=== PATIENT | female | born 1980 | race Caucasian/White ===

== ENCOUNTER → 2018-06-07 11:00 | Outpatient (CLI) | payer OTHER, SELFPAY | DX: Z23 Encounter for immunization (principal) | CPT/HCPCS: 90471; 90686 ==

== ENCOUNTER 2023-04-13 10:20 | Emergency (ER) | payer OTHER, SELFPAY ==
[2023-04-13 10:30] VITALS: BP 177/99; PULSE 85; RESP 18; TEMP 36.6; O2SAT 99; BMI 44.2
--- NOTE | 2023-04-13 10:36 | DI.RAD.S_ITS ---
PROCEDURE: XR CHEST 1V INDICATIONS: cough x 2 months TECHNIQUE: One view of the chest was acquired. COMPARISON: [facility], , CHEST 2 VIEW, 07/02/2016, 22:27. FINDINGS: Surgical changes and devices: None. Lungs and pleura: Lungs are clear. No pleural effusions or pneumothorax. Mediastinum: Mediastinal contours appear normal. Heart size is normal. Bones and chest wall: No suspicious bony lesions. Overlying soft tissues appear unremarkable. IMPRESSION: Portable chest within normal limits for age. Dictated by: Josefina Jordan M.D. on 04/13/2023 at 11:51 Approved by: Josefina Jordan M.D. on 04/13/2023 at 11:51
[2023-04-13 11:20] LABS: Influenza A - CEPHEID Flu A NEGATIVE (NEGATIVE); Influenza B - CEPHEID Flu B NEGATIVE (NEGATIVE); Respiratory Syncytial Virus Negative (Negative)
[2023-04-13 11:22] LABS: COVID-19 CEPHEID 4-PLEX PCR Negative (Negative)
--- NOTE | 2023-04-13 11:38 | ED.URI ---
HPI - URI/Sore Throat <Shazia Allen PA-C - Last Filed: 04/13/23 12:02> General Chief Complaint: Upper Respiratory Symptoms Stated Complaint: sinus issues Time Seen by Provider: 04/13/23 11:26 Source: patient Mode of arrival: Ambulatory History of Present Illness HPI Narrative: Patient is a 42-year-old female who presents with chief complaint of cough and sinus pressure. She reports she had a cold about 2 months ago and developed a productive frequent cough which seemed to better after several weeks but then she got sick again and the cough is again worse. She denies fever or chills, nausea vomiting, sore throat. She does have a bit of a runny nose and some postnasal drip. She endorses sinus pain and pressure and ear pain and pressure x7 days. She thinks her left ear is very congested and she can barely hear out of it. She has tried taking [id number] Mucinex and decongestants, and recently started taking Flonase daily for 3 days. She endorses shortness of breath during coughing fits but otherwise does not feel short of breath or wheezy, does not have any chest pain or abdominal pain. She has been able to eat and drink adequately. She is a nonsmoker and takes no daily medications. Related Data Home Medications Medication Instructions Recorded Confirmed [ CONTROL] ##0 07/02/16 Previous Rx's Medication Instructions Recorded amoxicillin 500 mg tablet 1,000 mg (2 x 500 mg) PO TID 5 04/13/23 days #30 tabs benzonatate 100 mg capsule 100 mg PO TID PRN cough #14 caps 04/13/23 Allergies Allergy/AdvReac Type Severity Reaction Status Date / Time No Known Drug Allergies Allergy Verified 04/13/23 11:30 Review of Systems <Shazia Allen PA-C - Last Filed: 04/13/23 12:02> Review of Systems ROS Unobtainable: All systems reviewed & are unremarkable except as noted in HPI and below Patient History <Shazia Allen PA-C - Last Filed: 04/13/23 12:02> Social History Smoking Status: Never smoker Smoking Status: Never smoker alcohol intake frequency: holidays/special occasions only Substance Use Type: does not use Exam <Shazia Allen PA-C - Last Filed: 04/13/23 12:02> Narrative Exam Narrative: GENERAL: 42 year old patient appears stated age. Well-developed patient, in mild distress. NEURO: AOx3. HEAD: Atraumatic. Normocephalic. EYES: Pupils equal round and reactive. Extraocular motions intact. No scleral icterus. No injection or drainage. ENT: Nose without bleeding or purulent drainage. Throat without erythema, tonsillar hypertrophy or exudate. Airway patent. Left TM shiny, bulging with clear fluid, no erythema. Right TM mildly bulging and clear. NECK: Trachea midline. Non tender CARDIOVASCULAR: Regular rate and rhythm without murmurs, gallops, or rubs. RESPIRATORY: Diminished in right lower lobe. No wheezes, rales, or rhonchi. Moist cough. SKIN: No rash or erythema of visible areas Initial Vital Signs Initial Vital Signs: Vital Signs Temperature 97.8 F 04/13/23 10:30 Pulse Rate 85 04/13/23 10:30 Respiratory Rate 18 04/13/23 10:30 Blood Pressure 177/99 H 04/13/23 10:30 Pulse Oximetry 99 04/13/23 10:30 Oxygen Delivery Method Room Air 04/13/23 10:30 <Rafita Cope MD - Last Filed: 04/13/23 18:00> Initial Vital Signs Initial Vital Signs: Vital Signs Temperature 97.8 F 04/13/23 10:30 Pulse Rate 85 04/13/23 10:30 Respiratory Rate 18 04/13/23 10:30 Blood Pressure 177/99 H 04/13/23 10:30 Pulse Oximetry 99 04/13/23 10:30 Oxygen Delivery Method Room Air 04/13/23 10:30 Course <Shazia Allen PA-C - Last Filed: 04/13/23 12:02> Orders Ordered: ED Orders 04/13/23 10:35 Covid-19 + FLU A/B + RSV - PCR Stat 04/13/23 10:36 Chest [XR chest 1V] Stat Vital Signs Vital signs: Vital Signs - 8 hr 04/13/23 10:30 04/13/23 12:06 Temperature 97.8 F 98.1 F Pulse Rate 85 77 Respiratory Rate 18 16 Blood Pressure 177/99 H 169/95 H Pulse Oximetry 99 99 Oxygen Delivery Method Room Air Room Air <Rafita Cope MD - Last Filed: 04/13/23 18:00> Orders Ordered: ED Orders 04/13/23 10:35 Covid-19 + FLU A/B + RSV - PCR Stat 04/13/23 10:36 Chest [XR chest 1V] Stat Vital Signs Vital signs: Vital Signs - 8 hr 04/13/23 10:30 04/13/23 12:06 Temperature 97.8 F 98.1 F Pulse Rate 85 77 Respiratory Rate 18 16 Blood Pressure 177/99 H 169/95 H Pulse Oximetry 99 99 Oxygen Delivery Method Room Air Room Air MDM - URI/Sore Throat <Shazia Allen PA-C - Last Filed: 04/13/23 12:02> Lab Data Labs: Lab Results 04/13/23 Range/Units 10:35 SARS-CoV-2 (PCR) Negative (Negative) Influenza A (RT-PCR) Flu a negative (NEGATIVE) Influenza B (RT-PCR) Flu b negative (NEGATIVE) RSV (PCR) Negative (Negative) Imaging Data Chest x-ray: Radiologist's Impression: PROCEDURE: XR CHEST 1V INDICATIONS: cough x 2 months TECHNIQUE: One view of the chest was acquired. COMPARISON: [facility], CHEST 2 VIEW, 07/02/2016, 22:27. FINDINGS: Surgical changes and devices: None. Lungs and pleura: Lungs are clear. No pleural effusions or pneumothorax. Mediastinum: Mediastinal contours appear normal. Heart size is normal. Bones and chest wall: No suspicious bony lesions. Overlying soft tissues appear unremarkable. IMPRESSION: Portable chest within normal limits for age. Dictated by: Josefina Jordan M.D. on 04/13/2023 at 11:51 Approved by: Josefina Jordan M.D. on 04/13/2023 at 11:51 MDM Narrative Medical decision making narrative: Multiple etiologies for patient's symptoms considered including, but not limited to: Viral respiratory infection, viral sinusitis, bacterial pneumonia, bacterial sinusitis, asthma, COVID/flu/RSV. Respiratory viral panel negative for COVID, flu, RSV. Chest x-ray concerning for early right lower lobe pneumonia, which is consistent with physical exam findings. Sinusitis is viral versus bacterial. Will treat with 1 g amoxicillin t.i.d. x5 days as patient has no comorbidities. Patient's symptoms improved over duration of stay with above-stated therapies. Findings and discharge diagnosis discussed with patient/family followed by verbalization of understanding Return precautions discussed with patient/family whom verbalize understanding of diagnosis and plan <Rafita Cope MD - Last Filed: 04/13/23 18:00> Lab Data Labs: Lab Results 04/13/23 Range/Units 10:35 SARS-CoV-2 (PCR) Negative (Negative) Influenza A (RT-PCR) Flu a negative (NEGATIVE) Influenza B (RT-PCR) Flu b negative (NEGATIVE) RSV (PCR) Negative (Negative) Discharge Plan Departure Patient Disposition: Home Clinical Impression: Acute viral sinusitis Pneumonia Qualifiers: Pneumonia type: due to unspecified organism Laterality: right Lung location: lower lobe of lung Qualified Code(s): J18.9 - Pneumonia, unspecified organism Instructions: DI for Pneumonia -- Adult, DI for Sinusitis Activity Restrictions/Additional Instructions: *You have been diagnosed with pneumonia and viral vs bacterial sinusitis. I will prescribe antibiotics. I would suggest continuing to drink lots of water, use the Flonase daily, use Sudafed (pseudoephedrine) for congestion in your sinuses and your ears, start using a saline nasal rinse, such as Neti pot or similar which is available at the drug store. I will also prescribe a cough suppressant medication. Your blood pressure is quite high today. I would recommend checking it on a regular basis, either with a home cuff or at the drug store, and recording the readings you get. I would then bring this log to your primary care provider for a checkup and assess whether you need to start any treatment for high blood pressure. Untreated high blood pressure can increase your risk of heart attack, stroke and other healthcare problems. *What to do: *Please continue to take your regular medications as directed. [x] New medication prescriptions sent to your pharmacy: [[facility] ] [ ] New medication written as a paper prescription [ ] No new medications given *Please follow up with your primary care provider in 2-3 days, call for an appointment. Let them know you were seen in the Emergency Department and that we ask that you be seen in follow up. We will electronically transmit a record of today's note if your PCP is in our system *If you do not have a primary care provider please contact the [facility] Resource line at [phone]. They will ask some questions about your medical history and help get you set up with a doctor in the community. *Return to Emergency Department if you should have any new, worsening or concerning symptoms, such as [fever greater than 101 F, shaking chills, worsening pain, persistent vomiting or other concerning symptoms]. Prescriptions: New amoxicillin 500 mg tablet 1,000 mg PO TID 5 Days Qty: 30 0RF benzonatate 100 mg capsule 100 mg PO TID PRN (Reason: cough) Qty: 14 0RF No Action [ CONTROL] Qty: 0 Stand Alone Forms: Patient Portal/API ED Sign-out <Rafita Cope MD - Last Filed: 04/13/23 18:00> Cosign ED Attending Cosignature Attestation: I was immediately available in the department for consultation. ?This documentation has been reviewed and I agree with assessment and plan. Supervised by Rafita Cope MD
[2023-04-13 12:06] VITALS: BP 169/95; PULSE 77; RESP 16; TEMP 36.7; O2SAT 99
== END 2023-04-13 12:08 | disposition home or self-care (01) ==
PROVIDERS: Emergency Medicine; Emergency Provider Physician Assistant
DX: J18.9 Pneumonia, unspecified organism (principal); J01.90 Acute sinusitis, unspecified; B97.89 Other viral agents as the cause of diseases classified elsewhere
CPT/HCPCS: 0241U; 71045; 99283

== ENCOUNTER 2023-07-01 22:17 | Emergency (ER) | payer OTHER, SELFPAY ==
[2023-07-01] VITALS (7 sets, daily range): BP systolic 171–202; BP diastolic 74–111; PULSE 66–98; RESP 20; TEMP 37; O2SAT 98–100; BMI 44.2
--- NOTE | 2023-07-01 22:57 | DI.RAD.S_ITS ---
PROCEDURE: INDICATIONS: R hip pain TECHNIQUE: 2 views of the hip were acquired. COMPARISON: None. FINDINGS: Bones: No fractures or dislocations. No suspicious bony lesions. The visualized pelvic ring appears intact. Soft tissues: No suspicious soft tissue calcifications or masses. IUD projects over the pelvis. IMPRESSION: No radiographic abnormality. If there is high clinical concern for fracture recommend further evaluation with cross-sectional imaging or repeat radiographs in 7-10 days. Dictated by: Latonya Barakat M.D. on 07/02/2023 at 0:11 Approved by: Latonya Barakat M.D. on 07/02/2023 at 0:13
--- NOTE | 2023-07-01 22:58 | ED_ITS ---
HPI - Extremity Problem General Chief complaint: Extremity Problem,Nontraumatic Stated complaint: rt pelvic pain/groin/hip flexer area Time Seen by Provider: 07/01/23 22:36 Source: patient Mode of arrival: Ambulatory History of Present Illness HPI Narrative: Patient is a 42-year-old female. Off and on for the past 4 weeks or so she has had right-sided abdominal discomfort. She states that it does seem to hurt more when she walks or when she has her hip bent and then moves onto her left side. There was not 1 specific incident that caused the discomfort. No urinary symptoms. No vaginal bleeding. No change in bowel habits. No nausea vomiting. No skin changes. The discomfort is not consistent. She is yet to be evaluated for this prior to arrival here in the ER. Related Data Home Medications Medication Instructions Recorded Confirmed [ CONTROL] ##0 07/02/16 Previous Rx's Medication Instructions Recorded benzonatate 100 mg capsule 100 mg PO TID PRN cough #14 caps 04/13/23 Allergies Allergy/AdvReac Type Severity Reaction Status Date / Time No Known Drug Allergies Allergy Verified 04/13/23 11:30 Review of Systems Constitutional Constitutional: Reports system reviewed and no additional complaints, except as documented Gastrointestinal Gastrointestinal: Reports system reviewed and no additional complaints, except as documented Genitourinary Genitourinary: Reports system reviewed and no additional complaints, except as documented Musculoskeletal Musculoskeletal: Reports system reviewed and no additional complaints, except as documented Integumentary/Breasts Skin/Breast: Reports system reviewed and no additional complaints, except as documented Neurologic Neurologic: Reports system reviewed and no additional complaints, except as documented Hematologic/Lymphatic On Anticoagulants: No Patient History Social History Smoking Status: Former smoker Smoking Status: Former smoker alcohol intake frequency: holidays/special occasions only Substance Use Type: does not use Exam Initial Vital Signs Initial Vital Signs: Vital Signs Temperature 98.6 F 07/01/23 22:22 Pulse Rate 98 H 07/01/23 22:22 Respiratory Rate 20 07/01/23 22:22 Blood Pressure 176/92 H 07/01/23 22:22 Pulse Oximetry 100 07/01/23 22:22 Oxygen Delivery Method Room Air 07/01/23 22:22 Const General: cooperative, comfortable and No ill appearing HENMT Head: normal to inspection and normocephalic GI Inspection: normal to inspection and non-distended Palpation: soft, No firm, No guarding and No tender Skin General: no rashes or lesions noted Extrem Other: No gross deformities. Right hip and right ankle unremarkable. Patient does not have specific discomfort with internal and external rotation of the right hip or flexion extension or abduction. She points to over her groin area where the discomfort is when it does come on. She states the discomfort is worse when she is standing on her hip. Course Orders Ordered: ED Orders 07/01/23 22:57 XR hip w pel if done RT 2V Stat 07/01/23 22:58 US pelvic complete Stat Vital Signs Vital signs: Vital Signs - 8 hr 07/01/23 22:22 07/01/23 22:33 07/01/23 22:34 Temperature 98.6 F Pulse Rate 98 H 66 90 Pulse Rate [Right Dorsalis Pedis] Respiratory Rate 20 Blood Pressure 176/92 H Pulse Oximetry 100 99 99 Oxygen Delivery Method Room Air 07/01/23 22:34 07/01/23 22:38 07/01/23 22:50 Temperature Pulse Rate 89 Pulse Rate [Right Dorsalis Pedis] 83 Respiratory Rate Blood Pressure 202/111 H Pulse Oximetry 98 Oxygen Delivery Method 07/01/23 22:50 07/01/23 23:00 07/01/23 23:00 Temperature Pulse Rate 82 Pulse Rate [Right Dorsalis Pedis] Respiratory Rate Blood Pressure 175/81 H 171/74 H Pulse Oximetry 99 Oxygen Delivery Method 07/01/23 23:30 07/01/23 23:30 07/02/23 00:00 Temperature Pulse Rate 95 H 80 Pulse Rate [Right Dorsalis Pedis] Respiratory Rate Blood Pressure 172/77 H Pulse Oximetry 100 98 Oxygen Delivery Method 07/02/23 00:01 07/02/23 00:01 Temperature Pulse Rate 81 Pulse Rate [Right Dorsalis Pedis] Respiratory Rate Blood Pressure 142/68 H Pulse Oximetry 98 Oxygen Delivery Method MDM - Extremity (Nontraumatic) Lab Data Labs: Point of Care Testing Test Results Negative Urine Dip Bedside Urine Glucose Negative Bedside Urine Bilirubin - Negative Bedside Urine Ketone - Negative Urine Specific [place] 1.015 Bedside Urine Occult Blood - Negative Bedside Urine pH 7.5 Bedside Urine Protein - Negative Bedside Urine Urobilinogen - Negative Bedside Urine Nitrite - Negative Bedside Urine Leukocytes - Negative Esterase Imaging Data Extremity x-ray #1: Radiologist's Impression: PROCEDURE: INDICATIONS: R hip pain TECHNIQUE: 2 views of the hip were acquired. COMPARISON: None. FINDINGS: Bones: No fractures or dislocations. No suspicious bony lesions. The visualized pelvic ring appears intact. Soft tissues: No suspicious soft tissue calcifications or masses. IUD projects over the pelvis. IMPRESSION: No radiographic abnormality. If there is high clinical concern for fracture recommend further evaluation with cross-sectional imaging or repeat radiographs in 7-10 d ays US - CABIN SERVICE AGENT: Radiologist's Impression: PROCEDURE: US PELVIC COMPLETE INDICATIONS: R adnexa pain TECHNIQUE: Real-time scanning was performed of the pelvic organs, with image documentation. Additional endovaginal scanning was necessary due to incomplete visualization of the adnexal and endometrial structures by transabdominal scanning. COMPARISON: None. FINDINGS: Uterus: Uterus is anteverted and normal in size at 7.5 x 5.3 x 4.7 centimeters. The endometrium is poorly visualized secondary to body habitus. Known intrauterine device is not well visualized. Endometrial thickness is approximately 7 millimeters. Ovaries: The right ovary measures 2.5 x 2.9 x 2.5 cm, with a calculated ovarian volume of 9.6 cc. There is a simple right adnexal cyst measuring 1.9 x 1.7 x 2.2 centimeter. The left ovary is not visualized. Other: No pathologic free abdominal or pelvic fluid. IMPRESSION: Uterus is suboptimally evaluated secondary to body habitus. Known intrauterine device is not visualized sonographically. Simple right adnexal cyst measuring 2.2 centimeter. Left ovary is not visualized. [facility] Narrative Medical decision making narrative: Hip x-ray is unremarkable. Ultrasound unremarkable. No signs of torsion. I do suspect this is a musculoskeletal and less likely a termite helper or intra-abdominal issue just based on her presentation. No indication for a CT scan. I discussed all this with the patient. Recommend that she contact her primary doctor for follow-up to discuss further potential evaluation and treatment to include physical therapy. Patient was given return precautions. She expressed underst anding and agreement. Discharge Plan Departure Patient Disposition: Home Clinical Impression: Hip pain Instructions: DI for Hip Pain Activity Restrictions/Additional Instructions: Recommend that you contact your primary care doctor for follow-up to discuss further evaluation and treatment if needed. Let your discomfort guide the restrictions that you have on activities. Return to the emergency department for new symptoms. Prescriptions: No Action [ CONTROL] Qty: 0 benzonatate 100 mg capsule 100 mg PO TID PRN (Reason: cough) Qty: 14 0RF Stand Alone Forms: Patient Portal/API
--- NOTE | 2023-07-01 22:58 | DI.US.S_ITS ---
PROCEDURE: US PELVIC COMPLETE INDICATIONS: R adnexa pain TECHNIQUE: Real-time scanning was performed of the pelvic organs, with image documentation. Additional endovaginal scanning was necessary due to incomplete visualization of the adnexal and endometrial structures by transabdominal scanning. COMPARISON: None. FINDINGS: Uterus: Uterus is anteverted and normal in size at 7.5 x 5.3 x 4.7 centimeters. The endometrium is poorly visualized secondary to body habitus. Known intrauterine device is not well visualized. Endometrial thickness is approximately 7 millimeters. Ovaries: The right ovary measures 2.5 x 2.9 x 2.5 cm, with a calculated ovarian volume of 9.6 cc. There is a simple right adnexal cyst measuring 1.9 x 1.7 x 2.2 centimeter. The left ovary is not visualized. Other: No pathologic free abdominal or pelvic fluid. IMPRESSION: Uterus is suboptimally evaluated secondary to body habitus. Known intrauterine device is not visualized sonographically. Simple right adnexal cyst measuring 2.2 centimeter. Left ovary is not visualized. We strive to produce accurate, complete, and clear reports of imaging services. To assist us in improving patient care, this report was composed using standard report templates and voice recognition software. Therefore, it may contain abnormal punctuation, insertions and/or omissions. Occasional wrong-word or sound-alike substitutions may occur. Though we review the report and make efforts to correct it, we do recommend that the report be read carefully in proper context to recognize any text inaccuracies. Dictated by: Latonya Barakat M.D. on 07/02/2023 at 0:14 Approved by: Latonya Barakat M.D. on 07/02/2023 at 0:17
[2023-07-02] VITALS: PULSE 80; O2SAT 98
[2023-07-02 00:01] VITALS: BP 142/68; PULSE 81; O2SAT 98
== END 2023-07-02 00:41 | disposition home or self-care (01) ==
PROVIDERS: Emergency Provider Emergency Medicine
DX: M25.551 Pain in right hip (principal); R10.2 Pelvic and perineal pain
CPT/HCPCS: 73502; 76830; 76856; 81003; 81025; 93976; 99284